=== PATIENT | male | born 2000 | race Caucasian/White ===

== ENCOUNTER 2018-08-14 13:36 | Emergency (ER) | payer OTHER ==
[~2018-08-14] VITALS: Ht 162.6 cm; Wt 57.6 kg
[2018-08-14 13:40] VITALS: BP 142/77
--- NOTE | 2018-08-14 14:09 | NUR ---
PT AMBULATED TO BED 11.
--- NOTE | 2018-08-14 14:15 | NUR ---
BIB SELF. AAO X4. C/O ABSCESS ON LEFT INNER ELBOW X 4 DAYS. PT STATES HE INJECTED HIMSELF WITH HEROIN TO L INNER ELBOW. PT STATES 8/10 TO L ARM, WARM TO TOUCH. PT STATES UNABLE TO STRAIGHTEN L ARM. AFEBRILE. DENIES N/V/D. HOB UP. BED SIDE RAILS UP X1. ON LOW BED POSITION, LOCKED. ER MADE AWARE OF PT STATUS.
--- NOTE | 2018-08-14 17:13 | NUR ---
Patient discharged with v/s stable. Written and verbal after care instructions given and explained. Patient alert, oriented and verbalized understanding of instructions. Ambulatory with steady gait. All questions addressed prior to discharge. ID band removed. Patient advised to follow up with PMD. Rx of KEFLEX 500 MG, BACTRIM DS, NORCO 5/325 MG given. Patient educated on indication of medication including possible reaction and side effects. Opportunity to ask questions provided and answered.
[2018-08-14 17:14] VITALS: BP 139/79
== END 2018-08-14 17:13 | disposition home or self-care (01) ==
LOC: MED 13:36
DX: L02.414 Cutaneous abscess of left upper limb (principal)
CPT/HCPCS: 99283

== ENCOUNTER 2018-08-19 00:38 | Emergency (ER) | payer OTHER ==
[~2018-08-19] VITALS: Ht 160 cm; Wt 57.6 kg
[2018-08-19 00:39] VITALS: BP 151/103
--- NOTE | 2018-08-19 00:48 | NUR ---
PT TAKEN TO BED 9
--- NOTE | 2018-08-19 00:50 | NUR ---
17 y/o M presented to ED with c/o abscess to L a/c x1 week. Per pt, "i used heroin a week ago for the first time and injected it to my arm. I came to the ED x4days ago and was given antibiotics and norco but it hasnt help." Edema and redness noted to L a/c. tender to touch. ERMd notified. Will continue to monitor.
--- NOTE | 2018-08-19 00:52 | NUR ---
Dr. Cook evaluating patient at bedside.
[2018-08-19] MEDS ORDERED: LIDOCAINE 1% 500 MG/50 ML VIAL INJ SCH ×3 (00:55→01:35)
[2018-08-19] MEDS ORDERED: LIDOCAINE MPF 1% 5mL VIAL ONE ×4 (01:10→01:20)
--- NOTE | 2018-08-19 01:20 | NUR ---
Pt refused TDAP vaccination. Risk and benefits explained. ERMD notified.
[2018-08-19 01:27] VITALS: BP 146/94
--- NOTE | 2018-08-19 01:27 | NUR ---
Patient discharged with v/s stable. Written and verbal after care instructions given and explained. Patient verbalized understanding. Ambulatory with steady gait. All questions addressed prior to discharge. Advised to follow up with PMD.
== END 2018-08-19 01:27 | disposition home or self-care (01) ==
LOC: MED 00:38
DX: L02.414 Cutaneous abscess of left upper limb (principal)
CPT/HCPCS: 10060; 99283; J2001; 90715